=== PATIENT | female | born 2000 | race Caucasian/White ===

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

== ENCOUNTER 2020-05-09 01:12 | Emergency (ER) | payer OTHER, MEDICAID ==
[~2020-05-09] VITALS: Ht 160 cm; Wt 117.9 kg
[~2020-05-09 01:12] MED LIST changes: +KEFLEX500 M1 PO; +PYRIDIUM200 MG PO
[2020-05-09] MEDS ORDERED: PROAIR HFA8.5 GM INH (01:27)
[2020-05-09 01:43] LABS: URINE BILIRUBIN NEGATIVE (Negative); URINE BLOOD NEGATIVE (Negative); URINE CLARITY CLEAR; URINE COLOR YELLOW; URINE GLUCOSE-RANDOM NEGATIVE (Negative); URINE KETONES NEGATIVE (Negative); URINE LEUKOCYTES-REFLEX NEGATIVE (Negative); URINE NITRITE-REFLEX NEGATIVE (Negative); URINE PROTEIN NEGATIVE (Negative); URINE SPECIFIC GRAVITY 1.025 (1.005-1.030); URINE UROBILINOGEN 0.2 E.U./dl (0.2-1.0)
[2020-05-09] MEDS ORDERED: PYRIDIUM200 MG PO (02:18)
[2020-05-09] MEDS ORDERED: KEFLEX500 M1 PO (02:18)
[2020-05-09 02:52] VITALS: BP 143/74
== END 2020-05-09 02:52 | disposition home or self-care (01) ==
LOC: M.ERS 01:12
PROVIDERS: Personal Emergency Response Attendant
DX: R30.0 Dysuria (principal); J45.909 Unspecified asthma, uncomplicated

== ENCOUNTER 2020-07-01 22:35 | Emergency (ER) | payer OTHER, MEDICAID ==
[~2020-07-01] VITALS: Ht 160 cm; Wt 108.9 kg
[~2020-07-01 22:35] MED LIST changes: +IPRAT-ALBUT 0.5-3 ML INH; +PREDNISONE 10 M10 M1 PO
[2020-07-02 00:15] VITALS: BP 135/80
== END 2020-07-02 00:16 | disposition home or self-care (01) ==
LOC: M.ERS 22:35
DX: J45.901 Unspecified asthma with (acute) exacerbation (principal)

== ENCOUNTER 2020-12-28 22:18 | Emergency (ER) | payer OTHER, MEDICAID ==
[~2020-12-28] VITALS: Ht 160 cm; Wt 111.6 kg
[2020-12-29 00:13] VITALS: BP 141/82
== END 2020-12-29 00:13 | disposition home or self-care (01) ==
LOC: M.ERS 22:18
DX: J02.8 Acute pharyngitis due to other specified organisms (principal); Z20.822 Contact with and (suspected) exposure to COVID-19; J45.909 Unspecified asthma, uncomplicated; Z79.899 Other long term (current) drug therapy